=== PATIENT | male | born 1990 ===

== ENCOUNTER 2025-06-14 14:42 | Emergency (ER) | payer SELFPAY ==
[2025-06-14 14:46] VITALS: BMI 23.0
[2025-06-14 14:47] VITALS: BP 163/103; PULSE 95; RESP 18; TEMP 36.7; O2SAT 98; BMI 23.0
--- NOTE | 2025-06-14 15:14 | PD.EDRME ---
Rapid Medical Screening Exam RME Arrival date/time: 06/14/25 14:42 34-year-old male presents emergency department today via EMS patient is homeless. Chief Complaint: Abdominal Pain Vital signs: Vital Signs Temperature 98.1 F 06/14/25 14:47 Pulse Rate 95 06/14/25 14:47 Respiratory Rate 18 06/14/25 14:47 Blood Pressure 163/103 H 06/14/25 14:47 Pulse Oximetry (%) 98 06/14/25 14:47 Oxygen Delivery Method Room Air 06/14/25 14:47
--- NOTE | 2025-06-14 15:27 | PC.NURSE ---
[employer] asked for assistance with patient for lab draw. Patient stated She's using a dog needle I know what you guys are trying to do . Education and redirection attempted with patient. Patient refused lab draw.
--- NOTE | 2025-06-14 17:48 | PC.NURSE ---
NAx2 @[id number]
--- NOTE | 2025-06-14 19:04 | PC.NURSE ---
NAx3 1905
== END 2025-06-14 19:05 | disposition left against medical advice (07) ==
LOC: SERX 15:41
PROVIDERS: Emergency Provider Family Medicine
DX: R10.9 Unspecified abdominal pain (principal); Z59.00 Homelessness unspecified; Z53.29 Procedure and treatment not carried out because of patient's decision for other reasons
CPT/HCPCS: 80053; 80307; 80320; 81001; 83690; 85025; 99285; G0480